=== PATIENT | male | born 1935 | race Caucasian/White ===

== ENCOUNTER → 2017-08-13 | Outpatient (CLI) | payer OTHER, BC | LOC: GIMAGING 12:00 | PROVIDERS: ATTEND Internal Medicine Geriatric Medicine | DX: J98.09 Other diseases of bronchus, not elsewhere classified (principal) | CPT/HCPCS: 71046-PO ==

== ENCOUNTER 2018-08-30 10:09 | Emergency (ER) | payer OTHER, BC ==
--- NOTE | 2018-08-30 11:11 | EDPHY ---
HPI/HX/ROS/PE/MDM Narrative: CHIEF COMPLAINT: Paraphimosis HPI: The patient is an 82-year-old male with a history of prostate cancer. His son-in-law reports that approximately 2 days ago he experienced some hematuria and urinary retention which prompted him to go to the ER at [facility]. While he was there, a Armando was inserted in his foreskin was retracted but his foreskin was never returned to normal position. Since that time, the patient's foreskin has remain retracted and his penis has become painful. They have been unable to manually retracted foreskin at home. He denies fever. He does report some continued hematuria but urine is flowing into his leg bag. REVIEW OF SYSTEMS: Aside from elements discussed in the HPI, a comprehensive 10-point review of systems was reviewed and is negative. PMH: Includes prostate cancer SOCIAL HISTORY: Retired. Denies alcohol or drug abuse. PHYSICAL EXAM: General:Patient is alert, in no acute distress. ENT:Eyes are normal to inspection. ENT inspection normal. Neck: Normal inspection. Full range of motion. Respiratory:No respiratory distress. Breath sounds normal bilaterally. Cardiovascular: Regular rate and rhythm. Strong peripheral pulses. Normal cap refill. Abdomen:The abdomen is nontender to palpation. There are no peritoneal signs. There are normal bowel sounds. : Armando catheter is in place. Significant paraphimosis is present without evidence of distal ischemia. The glans penis is diffusely edematous and tender. Skin: Normal color. No rash. Warm and dry. Extremities: Normal appearance. Full range of motion. Neuro: Oriented x3. Normal motor function. Normal sensory function. ED Course: I attempted to manually returned the foreskin to normal position but this was unsuccessful. I have consulted Dr. Morrissey from Urology at 11:30 a.m.. At 2pm, I was notified by the nurse that Dr. Morrissey has evaluated the patient and reduced the paraphimosis and recommends we discharge the patient home. Dr. Morrissey did not speak to me directly. General Time Seen by Provider: 08/30/18 10:55 Initial Vital Signs: Initial Vital Signs Temperature (C) 36.7 C 08/30/18 10:18 Heart Rate 87 08/30/18 10:18 Respiratory Rate 18 08/30/18 10:18 Blood Pressure 133/87 H 08/30/18 10:18 O2 Sat (%) 94 08/30/18 10:18 O2 Delivery Mode Room Air Allergies/Adverse Reactions: No Known Allergies Allergy (Unverified 08/30/18 10:16) Home Medications: Medication Instructions Recorded Aspirin 81mg (*) 08/30/18 Calcium 08/30/18 Erleada 08/30/18 Flomax 08/30/18 Prednisone 08/30/18 Prozac 10 MG (*) 08/30/18 Simvastatin 08/30/18 Departure - Departure Disposition: Home, Routine, Self-Care Clinical Impression: Paraphimosis Condition: Good Instructions: Armando Catheter Placement and Care (ED) Additional Instructions: Follow-up with your urologist as scheduled, within one week. Return to the ED for fever, pain, decreased urine output. Referrals: Hawa Banks MD [Primary Care Provider] - As per Instructions
[2018-08-30 14:06] VITALS: BP 167/98
--- NOTE | 2018-08-30 19:14 | GCON ---
[f rep st] CONSULTATION EMERGENCY ROOM UROLOGY CONSULTATION NOTE DATE OF CONSULTATION: 08/30/2018 REASON FOR CONSULTATION: Paraphimosis. HISTORY: This is an 82-year-old gentleman who has a history of prostate cancer which is currently being managed by medical oncology at [facility] with Dr. Vance. The patient more recently developed urinary retention and gross hematuria, unclear which occurred 1st, for which he had a Armando catheter inserted through a hospital in [place] 2 days ago. Apparently, the foreskin was not reduced at that time. The patient presented to the emergency room at [facility] this afternoon because of pain related to his non- reducible foreskin. Emergency room staff was unable to reduce the paraphimosis and I was asked to see the patient as a result. The patient has possibly seen Urology in [place] previously, possibly Dr. Bonilla or Todd, but not for several months. He has been obtaining his prostate cancer care through Dr. Vance's office and is currently on Lupron and Erleada for PSA-recurrent disease. It is unclear whether he has metastases. However, based on the fact he is on Erleada, he likely does not have measurable metastatic disease. The patient states his most recent PSA was approximately 12 and has been climbing. The patient has noticed intermittent gross hematuria since catheter placement, but the urine has been draining well through the Armando catheter. PAST MEDICAL HISTORY: PSA-recurrent prostate cancer, urinary retention, recent gross hematuria, history of BPH with urinary obstruction. High cholesterol, depression. PAST SURGICAL HISTORY: Includes inguinal hernia repair, carotid dissection repair in 1986, open subtotal retropubic prostatectomy in December 2004 (for BPH). ADMISSION MEDICATIONS: Include baby aspirin, Erleada, Flomax, prednisone, Prozac, simvastatin. ALLERGIES: None known. FAMILY HISTORY: Noncontributory. SOCIAL HISTORY: The patient and his live in the [place] area. He is accompanied by his son-in-law in the emergency room today. He denies use of tobacco or alcohol products. REVIEW OF SYSTEMS: Unremarkable, or as mentioned above in the HPI and Past Medical History. PHYSICAL EXAM: GENERAL: Well-developed, well-nourished white male lying supine in bed, in no acute distress presently. VITAL SIGNS: Blood pressure 158 /90, pulse is 80, respirations 16, oxygen saturations 93% on room air, temperature 36.7 Celsius. HEENT: Normocephalic, atraumatic. NECK: Normal appearance. HEART: Regular rate. CHEST: Unlabored respiratory pattern. ABDOMEN: Soft without palpable masses. No obvious organomegaly. No tenderness is appreciated. There is a lower midline surgical scar. GENITALIA: Non-circumcised phallus with edematous foreskin that is reduced behind the penile glans. There is no evidence of necrosis. Penile glans is edematous, but otherwise unremarkable. [place] 3-way Armando catheter in place draining relatively clear-colored urine with a few tiny clots. 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 EXTREMITIES: Warm without significant cyanosis. VASCULAR: Normal femoral pulses bilaterally. NEUROLOGIC: He is alert and oriented. He answers all questions appropriately with normal mood and affect. BEDSIDE PROCEDURE: Gentle, firm manual pressure was utilized to reduce the paraphimosis successfully. Patient tolerated this well. IMPRESSION: 1. Paraphimosis: Successfully reduced. 2. PSA-recurrent prostate cancer being managed by Dr. Vance, [facility] in [place]. 3. Recent gross hematuria with urinary retention, possible clot retention. Unclear etiology. PLAN: 1. I have given the patient instructions to monitor his foreskin and to make sure it stays reduced over the head of his penis. 2. He needs to follow up with a urologist sometime next week for further disposition regarding his recent gross hematuria and indwelling Armando catheter. These issues will need to be further evaluated. He states he will make an appointment either with the previous urologist he has seen in [place] or with my office. He has been given my business card. 3. Indwelling Armando catheter should be left in place until he has undergone urologic evaluation. Thank you for this consultation. /[id number]/MODL MTDD
== END 2018-08-30 14:05 | disposition home or self-care (01) ==
DX: N47.1 Phimosis (principal); Z85.46 Personal history of malignant neoplasm of prostate

== ENCOUNTER → 2018-11-03 | Outpatient (CLI) | payer OTHER, BC | LOC: FIMAGING 09:27 | PROVIDERS: ATTEND Specialist | DX: N13.30 Unspecified hydronephrosis (principal); N32.9 Bladder disorder, unspecified; C61 Malignant neoplasm of prostate ==